=== PATIENT | female | born 2000 | race Caucasian/White ===

== ENCOUNTER 2022-03-04 19:33 | Emergency (ER) | payer OTHER, SELFPAY ==
[2022-03-04 20:49] VITALS: BP 118/69; PULSE 111; RESP 18; TEMP 38.2; O2SAT 98; BMI 20.9
[2022-03-04] MEDS: Acetaminophen 325 MG TABLET 650 MG PO (20:55)
[2022-03-04 21:48] LABS: COVID-19 Test Negative (Negative)
--- NOTE | 2022-03-05 00:26 | ED.GENADULT ---
HPI - General Adult General Chief complaint: General Medical Stated complaint: Bodyaches, Headache, Chest pain Time Seen by Provider: 03/05/22 00:26 Source: patient Mode of arrival: ambulatory Limitations: no limitations History of Present Illness HPI narrative: Patient is 21 years old not vaccinated against COVID complaining of body aches low-grade fever sore throat headache chest pain for last 24 hours. Patient feels scratchy in her throat painful so no other family member sick Related Data Previous Rx's Medication Instructions Recorded amoxicillin 875 mg-potassium 1 tab PO BID #20 tabs 03/05/22 clavulanate 125 mg tablet Allergies Allergy/AdvReac Type Severity Reaction Status Date / Time No Known Allergies Allergy Verified 03/04/22 20:49 Review of Systems Review of Systems: Yes all other systems are reviewed and are negative [facility] Social History Social History Alcohol intake: never Patient Tobacco Use Status: Never used Tobacco Use of substances other than those prescribed or required for medical reasons: No Advance Directives: No Patient : No Physical Exam ED Vital Signs: Vital Signs - 24 hr 03/04/22 20:49 Temperature 100.7 F H Pulse Rate 111 H Respiratory Rate 18 Blood Pressure 118/69 Pulse Oximetry 98 Oxygen Delivery Method Room Air BMI result Body Mass Index 20.9 Appearance: Alert. Oriented X3. No acute distress. ENT: Pharynx erythema++ Oral Mucosa moist cobblestone erythema+ Neck: Normal inspection. Neck supple. CVS: Normal heart rate and rhythm. Pulses normal. Respiratory: No respiratory distress. Equal air entry bilateral, no wheezing/rales/rhonchi Abdomen: Soft and nontender. Bowel sounds are present, Skin: Skin warm and dry. Normal skin color. Extremities: No lower extremity edema. No calf tenderness Medical Decision Making MDM Narrative Medical decision making narrative: Patient with sore throat clinically has cobblestone feature suggestive of strep throat will get a rapid strep Lab Data Lab results reviewed: Yes I reviewed the patient's lab results. Labs: Lab Results 03/04/22 03/05/22 Range/Units 20:53 00:40 COVID-19 (MAXI) Negative (Negative) COVID-19 Clin Com See Note S. pyogenes GrpA MARCELL Negative (Negative) Discharge Plan Discharge Clinical Impression: Pharyngitis Patient Disposition: Home, Self-Care Instructions: Pharyngitis (ED) Additional Instructions: Drink plenty of fluids Antibiotic as advised f/u with PCP if not better Prescriptions: New amoxicillin-pot clavulanate 875-125 mg tablet 1 tab PO BID Qty: 20 0RF
[2022-03-05] MEDS: Amoxicillin/Potassium Clav 875 MG TABLET PO (00:54)
[2022-03-05 01:09] LABS: Strep A Nucleic Acid Negative (Negative)
== END 2022-03-05 01:53 | disposition home or self-care (01) ==
PROVIDERS: Emergency Provider Internal Medicine
DX: J02.9 Acute pharyngitis, unspecified (principal); R50.9 Fever, unspecified; Z20.822 Contact with and (suspected) exposure to COVID-19
CPT/HCPCS: 36415; 87635; 87651; 99283; 99284